=== PATIENT | male | born 1980 | race Caucasian/White ===

== ENCOUNTER 2018-10-25 14:26 | Inpatient (IN) | payer OTHER ==
[~2018-10-25] VITALS: Ht 175.3 cm; Wt 42.4 kg
--- NOTE | 2018-10-25 14:34 | NUR ---
PT BIB PD FOR MEDICAL CLEARANCE. HIGH BLOOD SUGAR PER REPORT. IN CUSTODY, PT IS AAOX3, NOT IN RESPIRATORY DISTRESS, V/S STABLE, KEPT RESTED AND COMFORTABLE, WILL CONTINUE TO MONITOR.
--- NOTE | 2018-10-25 14:40 | NUR ---
SEEN AND EXAMINED BY MAURI GLEZ
--- NOTE | 2018-10-25 14:50 | NUR ---
IV LINE ESTABLISHED, BLOOD DRAWNED AND SENT TO LAB.
[2018-10-25 14:51] LABS: BASOPHILS % (AUTO) 0.4 % (0.0-2.0); EOSINOPHILS % (AUTO) 0.3 % (0.0-6.0); HEMATOCRIT 38 % (39-51); HEMOGLOBIN 12.3 g/dL (13.5-17.5); MEAN CORPUSCULAR HGB CONC 33 g/dl (31.0-36.0); MEAN CORPUSCULAR VOLUME 91 fL (80-96); MONOCYTES # (AUTO) 0.8 /CMM (0.1-1.30); MONOCYTES % (AUTO) 10.8 % (2.0-12.0); NEUTROPHILS # (AUTO) 5.1 /CMM (1.8-8.9); NEUTROPHILS % (AUTO) 73.5 % (43.0-81.0); PLATELET COUNT (AUTO) 270 /CMM (150-450); RED BLOOD CELL COUNT(AUTO) 4.14 MIL/uL (4.5-6.0); WHITE BLOOD COUNT (AUTO) 6.9 K/uL (4.3-11.0)
[2018-10-25] MEDS ORDERED: IV NS 0.9% 1,000 ML BAG IV ONE (15:00)
--- NOTE | 2018-10-25 15:00 | NUR ---
URINE SPECIMEN COLLECTED AND SENT TO LAB.
[2018-10-25 15:02] LABS: CALCIUM, SERUM 9.4 mg/dL (8.5-10.1); CREATININE 0.9 mg/dL (0.6-1.3); POTASSIUM 4.3 mmol/L (3.5-5.1)
[2018-10-25 15:07] LABS: BILIRUBIN,DIRECT 0.1 mg/dL (0.0-0.2); BILIRUBIN,TOTAL 0.5 mg/dL (0.2-1.0); TOTAL PROTEIN, SERUM 6.8 g/dL (6.4-8.2)
[2018-10-25 15:11] LABS: APPEARANCE,URINE Clear (CLEAR); BILIRUBIN,URINE Negative (NEGATIVE); BLOOD, URINE Negative Ery/uL (NEGATIVE); COLOR,URINE Yellow (YELLOW); KETONES,URINE 40 (NEGATIVE); LEUKOCYTE ESTERASE ,URINE Negative (NEGATIVE); NITRITE, URINE Negative (NEGATIVE); PROTEIN,URINE Negative (NEGATIVE); UGLUCOSE >=1000 mg/dL (NEGATIVE); UROBILINOGEN,URINE 0.2 EU/dL (0.2)
[2018-10-25 15:21] LABS: BACTERIA,URINE None seen /HPF (None Seen); RBC,URINE 0-2 /HPF (0-2); SQUAMOUS EPITHELIAL CELL,UR None Seen /HPF (None Seen); WBC,URINE NONE SEEN /HPF (0-3)
[2018-10-25] MEDS ORDERED: IV LR 1000 ML 1,000 ML IV ONE ×2 (15:30)
[2018-10-25] MEDS ORDERED: INSULIN REGULAR, HUMAN 100 UNIT/ML 10 ML VIAL SQ ONE (15:30)
[2018-10-25] MEDS ORDERED: INSULIN REGULAR, HUMAN 100 UNIT/ML 10 ML VIAL ONE (15:33)
[2018-10-25 15:41] LABS: ABG BASE EXCESS 2.9 mmol/L; ABG OXYGEN SATURATION 61.6 % (92.0-98.5); ABG PCO2 52.9 mmHg (35.0-45.0); ABG PH 7.361 (7.350-7.450); ABG PO2 32.2 mmHg (75.0-100.0); MetHb 0.4 % (0.0-1.5); O2Hb 60.7 % (94.0-97.0); SITE, ABG LEFT ARM; VENT MODE, BG ROOM AIR
[2018-10-25] MEDS ORDERED: METF-442 PO (15:42)
--- NOTE | 2018-10-25 15:59 | NUR ---
RADHA 105
[2018-10-25] MEDS ORDERED: INSULIN REGULAR, HUMAN 100 UNIT in IV NS 0.9% 99 ML IV PRN ×4 (16:30→17:30)
--- NOTE | 2018-10-25 16:50 | NUR ---
REPEAT BLOOD SUGAR RESULT HIGH >600MG/DL.
--- NOTE | 2018-10-25 17:14 | NUR ---
DR. NADEEM TOLEDO AT BEDSIDE FOR EVAL.
[2018-10-25] MEDS ORDERED: ONDANSETRON HCL/PF 4 MG/2 ML VIAL IVP PRN (17:30)
--- NOTE | 2018-10-25 17:50 | NUR ---
REPORT GIVEN TO PAULINA FOR LAUREN, WITH ONGOING INSULIN DRIP AND LR.
[2018-10-25 18:30] VITALS: BP_SYST 92; BP_SYST 98; BP_DIAS 56; BP_DIAS 57
--- NOTE | 2018-10-25 18:47 | NUR ---
INITIAL COMMERCIAL ESTIMATOR NOTE RCVD PT AWAKE AND ALERT, SHOWING NO SIGNS OF DISTRESS/PAIN, COMPLAINS OF BEING HUNGRY, SR ON MONITOR, ON RA TOLERATING WELL, RIGHT AC #18 C/D/I/PATENT, INSULIN AND IVF INFUSING. NO S/O INFILTRATION/PHLEBITIS OBSERVED. PT STATES TO BE HOMELESS, NOT IN CUSTODY OF POLICE ANYMORE. PT'S CARE WILL BE ENDORSED TO FILTER WORKER RN FOR CONTINUITY OF CARE. BED IN LOW AND LOCKED POSITION, CALL LIGHT WITHIN REACH, HEAD OF BED ELEVATED.
--- NOTE | 2018-10-25 19:00 | NUR ---
PRODUCT PICKER NOTES RECEIVED PATIENT DROWSY AND WEAK,BUT EASILY AWAKENS, COHERENT AND APPROPRIATE BUT FEELS VERY WEAKLY , OHN INSULIND DRIP , FINGER STICK CHECK Q 1 HR. NOT IN ANY DISTRESS, DENIES ANY PAIN.COMFORT CARE DONE,NEEDS ATTENDED. NOTED ORAL THRUSH C/O PAIN IN ORAL CAVITY.
[2018-10-25] MEDS: BLOOD SUGAR DIAGNOSTIC 1 EACH STRIP IN SCH ×5 (19:08→23:15)
[2018-10-25] MEDS: IV NS 0.9% 1,000 ML IV PRN (19:59)
[2018-10-25 20:00] VITALS: BP 92/55
[2018-10-25 21:00] VITALS: BP 88/54
[2018-10-25] MEDS: NYSTATIN (PYXIS) 500,000 UNIT/5 ML ORAL.SUSP PO SCH (21:20)
[2018-10-25] MEDS: FAMOTIDINE/PF INJ 20 MG/2 ML VIAL IV SCH (21:20)
[2018-10-25 22:00] VITALS: BP 99/75
[2018-10-25 23:00] VITALS: BP 96/41
--- NOTE | 2018-10-25 23:00 | NUR ---
INSULIN DRIP OFF, NB=863,WILL RECHECK FINGER STICK BS IN 1 HR.
[2018-10-26] VITALS (13 sets, daily range): BP systolic 84–103; BP diastolic 45–86
--- NOTE | 2018-10-26 | NUR ---
FINGER STICK=85 MG/DL, INSULIN DRIP STILL OFF 0030 CALLED AND SPOK ETO [address]. MIJARES REFERRED ABIYT THE LATEST BLOOD SUGAR . ORDERED TO CHANGE IVFLUID TO [id number] AND START INSULIN COVERAGE Q 6 HRS, FINGER STICK .
[2018-10-26] MEDS: IV NS 0.9% 1,000 ML IV PRN (00:03)
[2018-10-26] MEDS: BLOOD SUGAR DIAGNOSTIC 1 EACH STRIP IN SCH ×4 (00:10→21:48)
[2018-10-26] MEDS: IV D5/ 0.9% NACL 1,000 ML IV PRN ×2 (00:50→08:38)
[2018-10-26] MEDS ORDERED: DEXTROSE 50%-WATER 50 ML DISP.SYRIN IV PRN ×2 (01:00→09:00)
[2018-10-26] MEDS ORDERED: INSULIN REGULAR, HUMAN 100 UNIT/ML 3 ML VIAL SQ PRN (01:00)
[2018-10-26 04:27] LABS: BASOPHILS % (AUTO) 0.4 % (0.0-2.0); EOSINOPHILS % (AUTO) 1.2 % (0.0-6.0); HEMATOCRIT 31 % (39-51); HEMOGLOBIN 10.6 g/dL (13.5-17.5); LYMPHOCYTES # (AUTO) 2.7 /CMM (0.8-4.8); LYMPHOCYTES % (AUTO) 39.5 % (20.0-44.0); MEAN CORPUSCULAR HGB CONC 35 g/dl (31.0-36.0); MEAN CORPUSCULAR VOLUME 87 fL (80-96); MONOCYTES # (AUTO) 0.6 /CMM (0.1-1.30); MONOCYTES % (AUTO) 8.1 % (2.0-12.0); NEUTROPHILS # (AUTO) 3.5 /CMM (1.8-8.9); NEUTROPHILS % (AUTO) 50.8 % (43.0-81.0); PLATELET COUNT (AUTO) 256 /CMM (150-450); WHITE BLOOD COUNT (AUTO) 6.9 K/uL (4.3-11.0)
[2018-10-26 04:40] LABS: CALCIUM, SERUM 7.4 mg/dL (8.5-10.1); CREATININE 0.4 mg/dL (0.6-1.3); MAGNESIUM 1.3 mg/dL (1.8-2.4); PHOSPHORUS 2.2 mg/dL (2.5-4.9)
[2018-10-26 04:52] LABS: POTASSIUM 2.6 mmol/L (3.5-5.1)
[2018-10-26 04:53] LABS: THYROID STIMULATING HORMONE 3.279 uIU/mL (0.358-3.74)
[2018-10-26] MEDS ORDERED: BLOOD SUGAR DIAGNOSTIC 1 EACH STRIP IN SCH (06:00)
--- NOTE | 2018-10-26 06:15 | NUR ---
CALLED AND SPOKE TO REFERRED ABOUT THE LABS, MAGNESIUM =1.3, PHOS=2.2, POTASSIUM=2.6 , REPLACEMENTS ORDERED.
[2018-10-26] MEDS: Magnesium 1GM/D5W 100ML PREMIX 100 ML IV SCH ×4 (06:38→10:09)
[2018-10-26] MEDS: POTASSIUM CHLORIDE 20 MEQ TAB.PRT.SR PO SCH ×2 (06:38→07:43)
[2018-10-26] MEDS ORDERED: POTASSIUM PHOSPHATE MM 15 MMOL in IV D5W 250 ML IV ONE (08:00)
--- NOTE | 2018-10-26 08:00 | NUR ---
RN NOTE: PATIENT RECEIVED ASLEEP, EASILY AROUSAL, ABLE TO MAKE NEEDS KNOWN. VERBALIZE FEELING WEAK. ON ROOM AIR, NO BREATHING DISTRESS NOTED. DENIES CHEST PAIN & DISCOMFORT. SAFETY MEASURES OBSERVED. CONTINUE WITH IV FLUIDS ORDERED BY MD. CONTINUE WITH PLAN OF CARE.
--- NOTE | 2018-10-26 08:53 | NUR ---
WOUND CARE CONSULT: PT PRESENTS EXTREMELY THIN AND BONY WITH BLANCHABLE REDNESS TO SACRUM, PRESENT ON ADMISSION. RECOMMENDATIONS MADE FOR SKIN PROTECTION. DISCUSSED WITH NURSING STAFF. DIETARY CONSULT IN PLACE. WILL SEE PRMaira BEAL IN AGREEMENT WITH PLAN OF CARE.
[2018-10-26] MEDS: FAMOTIDINE/PF INJ 20 MG/2 ML VIAL IV SCH ×2 (09:33→21:48)
[2018-10-26] MEDS: NYSTATIN (PYXIS) 500,000 UNIT/5 ML ORAL.SUSP PO SCH ×4 (09:33→21:48)
[2018-10-26] MEDS: METFORMIN 500 MG TABLET PO SCH ×2 (09:33→16:38)
--- NOTE | 2018-10-26 11:00 | NUR ---
RN NOTE: PATIENT TRANSFER TO MED-SURG FLOOR, ALERT AWAKE ORIENTED X 4. ON ROOM AIR, NO BREATHING DISTRESS NOTED. DENIES PAIN & DISCOMFORT. AMBULATORY WITH STAND BY ASSIST. SKIN INTACT, BLANCHABLE REDNESS TO SCARUM, MEPILEX APPLIED. TRANSFER WITH ALL BELONGINGS. REPORT GIVEN TO LANDON RN. PATIENT AGREE WITH PLAN.
--- NOTE | 2018-10-26 11:06 | NUR ---
MS/RN RECEIVED PATIENT FROM ICU IN STABLE CONDITION. REPORT GIVEN BY RAVI MARTIN FOR LAUREN.
[2018-10-26] MEDS: POTASSIUM PHOSPHATE MM 7.5 MMOL in IV D5W 100 ML IV SCH ×2 (11:25→14:21)
[2018-10-26] MEDS: INSULIN REGULAR, HUMAN 100 UNIT/ML 3 ML VIAL SQ PRN ×3 (11:48→22:27)
--- NOTE | 2018-10-26 12:26 | NUR ---
Social service consult requested by Gene Valentine MD for homelessness. Pt is a 38 year old male who was admitted to [facility] for hyperglycemia. SW met with pt. bedside. Pts belongings were at bedside. Pt. is alert and oriented x4. Pt was cooperative with SW during the entire assessment. Pt. is ambulatory. Pt. states he has been homeless for about 2 years. SW inquired with pt. if he has worked with any caseworkers in the community. Pt. stated, Yes I was staying at the [facility] rehabilitation program in [place], but I left because it is too far and I want to go to the program in [place]. However, pt. was arrested for an outstanding warrant and was brought to [facility] before being able to attend. Pt. states he is staying in [place], under a bridge, but is planning to go to the [facility] rehabilitation program in [place] after discharge. Pt. has no income and states that he is not eligible to receive any benefits due to his immigration status. Pt. denies alcohol and cigarette use, but states he smokes crystal meth whenever it is available to him. SW offered additional substance use program referrals and pt was receptive but declined being referred. SW offered emergency snf referrals but pt. declined. SW provided the following referrals with pt: [address] [address] , [facility] [address] [facility] [address] , and the [facility]eless Resources Directory. Pt. denies suicidal and homicidal ideation at this time. Pt. will signed homeless waiver and it was placed in chart. Pt. will require a TAP card upon discharge. No other services needed at this time. SW is available if needed.
--- NOTE | 2018-10-26 14:43 | NUR ---
MS/RN SPOKE WITH DR SILVER AND MADE AWARE PATIENT NOTED EATING 100% PO MEAL INTAKE, TOLERATED WELL AND ASKING FOR EXTRA FOOD AND IF OKAY TO DC D5 NS FLUIDS PER DR SILVER ORDERS OKAY TO DC D5 NS AT 125MLS/HR. ORDERS NOTED AND CARRIED OUT.
--- NOTE | 2018-10-26 18:11 | NUR ---
MS/RN CLOSING NOTE PATIENT IN BED IN STABLE CONDITION. A/O X 3. NO SIGNS OF ACUTE DISTRESS. NO COMPLAIN OF PAIN OR DISCOMFORT. ALL NEEDS ATTENDED TO. CALL LIGHT WITHIN REACH. WILL ENDORSE TO NEXT SHIFT FOR CONTINUITY OF CARE.
--- NOTE | 2018-10-26 19:20 | NUR ---
RN NOTES: RECEIVED ENDORSEMENT FROM LUCITA, PATIENT A/OX4, AMBULATORY, SKIN IS INTACT,ABLE TO MAKE NEEDS KNOWN,IV CANNULA RAC GAUGE#20, D5%NS DRIP WAS DISCONTINUE WELL INSULIN DRIP FROM ICU, POTASSIUM, MAGNESIUM AND PHOSPHORUS WERE ALL REPLACED.ORIENTED TO UNIT AND STAFF, FALL,SAFETY AND ASPIRATION PRECAUTION OBSERVED, BED LOW AND LOCKED, CALL LIGHT WITHIN EASY REACH.
--- NOTE | 2018-10-26 20:00 | NUR ---
RN NOTES: -AT 1934 RECEIVED A TELEPHONE CALL FROM [facility]CRO[facility], SPOKE WITH KIARA AND NOTIFIED US THAT PATIENT IS MRSA NARES-POSITIVE, IMMEDIATELY, ISOLATION PRECAUTION AND STANDARD PRECAUTION/SET-UP OBSERVED. -1999 ENDORSED TO AXEL FOR CONTINUITY OF CARE, TO NOTIFY CN AND PAPER GUILLOTINE OPERATOR.
--- NOTE | 2018-10-26 21:00 | NUR ---
RN NOTES RECEIVED REPORT FROM RAVI DIETRICH, SAFETY MEASURES IN PLACE, CALL LIGHT WITHIN REACH, ISOLATION PRECAUTION MAINTAINED, WILL MONITOR ACCORDINGLY.
--- NOTE | 2018-10-27 06:57 | NUR ---
RN NOTES ALL NEEDS ATTENDED AND MET, ABLE TO REST AND SLEEP AT INTERVALS, KEPT RESTED, SAFETY MEASURES IN PLACE, CALL LIGHT WITHIN EASY REACH, WILL ENDORSE TO AM NURSE FOR CONTINUITY OF CARE.
--- NOTE | 2018-10-27 07:28 | NUR ---
MS RN OPENING NOTES RECEIVED PT SLEEPING IN BED. A/O X4. PT DOESN'T WANT TO BE BOTHERED AT THE TIME OF ROUNDS. TOLERATING RA, WITH NO ACUTE RESPIRATORY DISTRESS NOTED. PT DENIES ANY PAIN OR DISCOMFORT. ALSO, DENIES ANY CONCERNS AND QUESTIONS. PIV TO RAC G20, FLUSHED WITH NS, INTACT AND OPERATIONAL. PT KEPT COMFORTABLE. PT'S BED IN LOWEST, LOCKED POSITION WITH SR X2. CALL LIGHT WITHIN REACH. WILL CONTINUE PLAN OF CARE.
[2018-10-27 07:29] LABS: BASOPHILS % (AUTO) 0.6 % (0.0-2.0); EOSINOPHILS % (AUTO) 0.8 % (0.0-6.0); HEMATOCRIT 34 % (39-51); HEMOGLOBIN 11.6 g/dL (13.5-17.5); LYMPHOCYTES # (AUTO) 2.7 /CMM (0.8-4.8); LYMPHOCYTES % (AUTO) 39.6 % (20.0-44.0); MEAN CORPUSCULAR HGB CONC 34 g/dl (31.0-36.0); MEAN CORPUSCULAR VOLUME 88 fL (80-96); MONOCYTES # (AUTO) 0.5 /CMM (0.1-1.30); NEUTROPHILS # (AUTO) 3.5 /CMM (1.8-8.9); PLATELET COUNT (AUTO) 234 /CMM (150-450); RED BLOOD CELL COUNT(AUTO) 3.83 MIL/uL (4.5-6.0); WHITE BLOOD COUNT (AUTO) 6.8 K/uL (4.3-11.0)
[2018-10-27] MEDS: BLOOD SUGAR DIAGNOSTIC 1 EACH STRIP IN SCH ×4 (07:37→21:31)
[2018-10-27 07:48] LABS: CALCIUM, SERUM 7.6 mg/dL (8.5-10.1); CREATININE 0.5 mg/dL (0.6-1.3); MAGNESIUM 1.8 mg/dL (1.8-2.4); PHOSPHORUS 2.8 mg/dL (2.5-4.9)
[2018-10-27 08:00] VITALS: BP 96/55
[2018-10-27] MEDS: METFORMIN 500 MG TABLET PO SCH ×2 (08:48→16:44)
[2018-10-27] MEDS: NYSTATIN (PYXIS) 500,000 UNIT/5 ML ORAL.SUSP PO SCH ×4 (08:48→21:30)
[2018-10-27] MEDS: FAMOTIDINE/PF INJ 20 MG/2 ML VIAL IV SCH ×2 (08:48→21:30)
[2018-10-27] MEDS ORDERED: METF-440 PO (10:23)
[2018-10-27] MEDS: INSULIN REGULAR, HUMAN 100 UNIT/ML 3 ML VIAL SQ PRN ×3 (11:51→21:35)
--- NOTE | 2018-10-27 14:00 | NUR ---
MS RN NOTES PEGGY/JARON TALKED TO PT REGARDING DISCHARGE. PT REQUESTED FOR ANOTHER DAY TO STAY. / AWARE AND OKAY FOR PT TO BE DISCHARGE TOMORROW AFTER BREAKFAST. YANELY/EVELYN AWARE WELL. WILL ENDORSE TO INCOMING NIGHT NURSE.
[2018-10-27 16:00] VITALS: BP 94/52
--- NOTE | 2018-10-27 18:23 | NUR ---
MS RN CLOSING NOTES PT REMAINS IN BED. A/O X4, AMBULATORY. TOLERATING RA, WITH NO ACUTE RESPIRATORY DISTRESS NOTED. PT DENIES ANY PAIN OR DISCOMFORT. PT AWARE THAT HE'S GOING TO GET DISCHARGE TOMORROW AFTER BREAKFAST PER DR NADEEM RIVAS TO [employer] [facility] G18, FLUSHED WITH NS, INTACT AND OPERATIONAL. ALL NEEDS AND CARE ATTENDED. PT KEPT COMFORTABLE. PT'S BED IN LOWEST, LOCKED POSITION WITH SR X2. CALL LIGHT WITHIN REACH. WILL ENDORSE TO INCOMING NIGHT NURSE FOR LAUREN.
--- NOTE | 2018-10-27 19:15 | NUR ---
MS RN PM OPENING NOTES BEDSIDE REPORT RECIEVED FROM ARIEL RODRIGUES. POC REVIEWED WITH PATIENT QUESTIONS CONCERNS ADDRESSED. PATIENT IS HOMELESS SO DISCHARGE IS ON HOLD PER ROOM CLEANER TO DC TOMORROW AM BECAUSE PATIENT ASKED TO STAY ONE MORE DAY AND EXTRA STAY WAS APPROVED PER REPORT. PT IN BED. A/O X4, AMBULATORY. NO ACUTE RESPIRATORY DISTRESS NOTED. PT DENIES PAIN OR DISCOMFORT. PT AWARE THAT HE'S GOING TO GET DISCHARGE TOMORROW AND VERBALIZED UNDERSTANDING. BED LOW, LOCKED POSITION WITH SR X2. CALL LIGHT WITHIN REACH. VERBALIZED UNDERSTANDING TO CALL FOR ASSISTANCE NEEDED.
[2018-10-27 20:39] VITALS: BP 95/50
--- NOTE | 2018-10-27 21:28 | NUR ---
BS 436; DISCUSSED DIET. PATIENT BS FOUND TO BE 436. 10 UNITS OF REGULAR INSULIN ADMINISTERED ORDERED. AROUND 2029. I GAVE PATIENT A MILK AND 2 PACKS OF GRAM CRACKERS. SPOKE WITH KAYLIE MARSHALL WHOM STATES PATIENT ASKED HIM FOR SNACK DURING START OF SHIFT AND GAVE HIM A PUDDING AND 2 PACKS OF GRAM CRACKERS AND A SANDWICH. SPOKE WITH ALEJANDRO CHARGE NURSE AND PATIENT HAD ASKED HIM FOR SNACK DURING HIS ROUNDS AROUND 9 PM AND HE GAVE PATIENT SOME GRAM CRACKERS. EDUCATED PATIENT ON NEED TO AVOID SO MANY CARBS AND SNACKS TO KEEP HIS BS UNDER CONTROL PATIENT STATES, "I JUST FEEL LIKE I AM HUNGRY ALL THE TIME." INFORMED PATIENT THAT WE WOULD RESTRICT ADDITIONAL SNACKS FOR THE NIGHT. WILL CONT TO MONITOR.
[2018-10-27] MEDS: MUPIROCIN OINT 2% 22 GM TUBE SCH (21:30)
[2018-10-28] MEDS: BLOOD SUGAR DIAGNOSTIC 1 EACH STRIP IN SCH ×3 (06:50→17:14)
[2018-10-28] MEDS: INSULIN REGULAR, HUMAN 100 UNIT/ML 3 ML VIAL SQ PRN ×3 (06:52→17:19)
--- NOTE | 2018-10-28 07:30 | NUR ---
MS RN OPENING NOTES RECEIVED PATIENT AWAKE IN BED IN NO ACUTE SIGN OF DISTRESS. A/O X 4. DENIES PAIN OR ANY DISCOMFORT AT THIS TIME. IV ACCESS ON RAC G#18 INTACT AND PATENT. SAFETY MEASURES IN PLACE. BED IN LOW LOCKED POSITION WITH SIDE RAILS UP X2. CALL LIGHT WITHIN EASY REACH. WILL CONTINUE TO MONITOR PATIENT ACCORDINGLY.
[2018-10-28 08:00] VITALS: BP 88/57
[2018-10-28] MEDS: FAMOTIDINE/PF INJ 20 MG/2 ML VIAL IV SCH (08:31)
[2018-10-28] MEDS: NYSTATIN (PYXIS) 500,000 UNIT/5 ML ORAL.SUSP PO SCH ×3 (08:32→16:49)
[2018-10-28] MEDS: METFORMIN 500 MG TABLET PO SCH ×2 (08:32→16:49)
[2018-10-28] MEDS: MUPIROCIN OINT 2% 22 GM TUBE SCH (08:35)
[2018-10-28 16:00] VITALS: BP 101/56
--- NOTE | 2018-10-28 17:20 | NUR ---
RN NOTES PATIENT NOTED WITH BS OF 376 MG/DL THIS AFTERNOON. REGULAR INSULIN 10units GIVEN PER SLIDING SCALE. WILL CONTINUE TO MONITOR.
--- NOTE | 2018-10-28 18:13 | NUR ---
LOIN TRIMMER NOTES PATIENT DISCHARGED IN STABLE CONDITION. A/O X 4. ABLE TO MAKE NEEDS KNOWN. V/S TAKEN, STABLE AND RECORDED. PATIENT 'S IV ACCESS REMOVED AND APPLIED PRESSURE DRESSING. SKIN IS INTACT. NAME ARM BAND REMOVED. ALL BELONGINGS CHECKED AND SIGNED. PATIENT STATED THAT HE'S HOMELESS, GIVEN RESOURCES AND REFERRALS BUT [facility]ERRED [facility] AND STATED HE WILL MEET A FRIEND. PRESCRIPTION FOR METFORMIN WAS GIVEN TO PATIENT. HEALTH TEACHING/ DISCHARGED INSTRUCTIONS GIVEN AND VERBALIZED UNDERSTANDING. PATIENT LEFT UNIT AMBULATORY AT 18:05 WITH NO ACUTE SIGNS OF DISTRESS. PATIENT ASSISTED TO THE LOBBY AND TAP CARD GIVEN. CHARGE NURSE AWARE OF DISCHARGED.
== END 2018-10-28 18:15 | disposition home or self-care (01) | DRG 420 ==
LOC: ER 14:30 → TELE-TD 16:26 → ICU 17:27 → MED 10-26 11:46
DX: E11.00 Type 2 diabetes mellitus with hyperosmolarity without nonketotic hyperglycemic-hyperosmolar coma (NKHHC) (principal); E83.39 Other disorders of phosphorus metabolism; E11.65 Type 2 diabetes mellitus with hyperglycemia; E88.09 Other disorders of plasma-protein metabolism, not elsewhere classified; Z91.14 Patient's other noncompliance with medication regimen; E87.1 Hypo-osmolality and hyponatremia; E83.42 Hypomagnesemia; E87.6 Hypokalemia; J45.909 Unspecified asthma, uncomplicated; F15.10 Other stimulant abuse, uncomplicated
CPT/HCPCS: 36415; 36600; 80048-TC; 80061-TC; 80076-TC; 80305; 81000-TC; 82962-TC; 83735-TC; 84100-TC; 84443-TC; 85025-TC; 87081-TC; 92526; 92611-TC; 97116-TC; 97530-TC; G0378; J1815; J3475; J3490; J7030; J7042; J7060; J7070; J7120